=== PATIENT | female | born 1955 | race Asian ===

== ENCOUNTER 2020-09-10 08:43 | Day surgery (SDC) | payer OTHER, SELFPAY ==
[~2020-09-10] VITALS: Ht 160 cm; Wt 59.0 kg
[2020-09-10] MEDS ORDERED: fentaNYL citrate 0.05 MG/ML VIAL ONE (10:07)
[2020-09-10] MEDS ORDERED: MIDAZOLAM 5 MG/5 ML VIAL ONE (10:08)
[2020-09-10] MEDS ORDERED: LIDOCAINE 2% 100 MG/5 ML UJET TP ONE (10:50)
[2020-09-10] MEDS ORDERED: SIMETHICONE 40 MG/0.6 ML ONE (11:25)
[2020-09-10] MEDS ORDERED: fentaNYL citrate 0.05 MG/ML VIAL IVP ONE (13:10)
[2020-09-10] MEDS ORDERED: SIMETHICONE 40 MG/0.6 ML PO PRN (13:10)
[2020-09-10] MEDS ORDERED: MIDAZOLAM 2 MG/2 ML VIAL IVP ONE (13:10)
[2020-09-10] MEDS ORDERED: LIDOCAINE JELLY 2% 30 ML TUBE TP ONE (13:10)
== END 2020-09-10 12:15 | disposition home or self-care (01) ==
LOC: MDS 08:43 → MMU 08:44 → MDS 12:15
PROVIDERS: ATTEND Internal Medicine Gastroenterology
DX: R19.7 Diarrhea, unspecified (principal); K29.70 Gastritis, unspecified, without bleeding; K57.30 Diverticulosis of large intestine without perforation or abscess without bleeding; K29.80 Duodenitis without bleeding; K64.8 Other hemorrhoids; J45.909 Unspecified asthma, uncomplicated; Z88.0 Allergy status to penicillin; Z88.1 Allergy status to other antibiotic agents; Z88.6 Allergy status to analgesic agent; Z20.828 Contact with and (suspected) exposure to other viral communicable diseases; Z79.899 Other long term (current) drug therapy
CPT/HCPCS: 36415; 43239; 45380; 86677; J2250; J3010; U0003; 88305